=== PATIENT | female | born 2000 | race Caucasian/White ===

== ENCOUNTER 2019-04-10 14:28 | Emergency (ER) | payer OTHER ==
[~2019-04-10] VITALS: Ht 154.9 cm; Wt 50.8 kg
[2019-04-10 14:34] VITALS: BP 103/57
--- NOTE | 2019-04-10 14:43 | NUR ---
18/F BIB SELF C/O GENERALIZED ABD PAIN & LOW BACK PAIN X LAST NIGHT. PT DENIES URINARY COMPLAINTS. DIARRHEA X 5 TODAY. DENIES BLOOD IN STOOL. +NAUSEA, NO VOMITING. PT "FEELING WEAK," "AND DIZZY." DIZZINESS EXACERBATED BY STANDING. TOOK ADVIL AT 11AM WITH SOME RELIEF. PATIENT STATES PAIN OF 5/10 AT THIS TIME; PATIENT POSITIONED FOR COMFORT; HOB ELEVATED; BEDRAILS UP X1; BED DOWN. ER MD MADE AWARE OF PT STATUS.
[2019-04-10] MEDS ORDERED: ONDANSETRON 4 MG/2 ML VIAL IVP ONE (14:55)
[2019-04-10] MEDS ORDERED: KETOROLAC 30 MG/ML VIAL IVP ONE (14:55)
[2019-04-10] MEDS ORDERED: NACL 0.9% 1,000 ML IV ONE (14:55)
--- NOTE | 2019-04-10 15:05 | NUR ---
IV START: L AC 20G, FLUSHED WELL W/O RESISTANCE; NO REDNESS OR SWELLING NOTED; CLEAR TRANSPARENT DRESSING APPLIED. PT TOLERATED WELL. -LABS DRAWN BY [place] AND SENT TO LAB W/ TECH.
[2019-04-10 15:17] LABS: BASOPHILS % (AUTO) 0.2 % (0.0-2.0); HEMOGLOBIN 13.8 g/dL (12.0-16.0); LYMPHOCYTES # (AUTO) 1.3 K/uL (2.5-16.5); LYMPHOCYTES % (AUTO) 16.8 % (20.5-51.1); MEAN CORPUSCULAR HEMOGLOBIN 29 pg (27-31); MEAN CORPUSCULAR HGB CONC 34 g/dL (33-37); MEAN CORPUSCULAR VOLUME 86.2 fL (80-94); MONOCYTES # (AUTO) 0.5 K/uL (0.8-1.0); MONOCYTES % (AUTO) 6.5 % (1.7-9.3); NEUTROPHILS # (AUTO) 5.9 K/uL (1.8-7.7); NEUTROPHILS % (AUTO) 76.5 % (42.2-75.2); PLATELET COUNT (AUTO) 227 K/uL (140-450); RED BLOOD CELL COUNT(AUTO) 4.76 MIL/uL (4.20-5.40); RED CELL DISTRIBUTION WIDTH 13.8 % (11.6-13.7); WHITE BLOOD COUNT (AUTO) 7.7 K/uL (4.5-11.0)
[2019-04-10 15:18] LABS: APPEARANCE,URINE CLEAR (CLEAR); BILIRUBIN,URINE NEGATIVE (NEGATIVE); BLOOD, URINE NEGATIVE (NEGATIVE); COLOR,URINE YELLOW (YELLOW); LEUKOCYTE ESTERASE ,URINE NEGATIVE (NEGATIVE); NITRITE, URINE NEGATIVE (NEGATIVE); UGLUCOSE NEGATIVE (NEGATIVE)
[2019-04-10 15:26] LABS: ANION GAP 10.5 (8-16); CARBON DIOXIDE 26.8 mmol/L (21-32); CREATININE 0.9 mg/dL (0.6-1.3); POTASSIUM 3.3 mmol/L (3.5-5.1)
[2019-04-10 15:31] LABS: PROTHROMBIN TIME 10.4 secs (10.8-13.4)
[2019-04-10 15:32] LABS: ALBUMIN 3.9 g/dL (3.4-5.0); TOTAL BILIRUBIN 0.7 mg/dL (0.0-1.0)
[2019-04-10 17:06] VITALS: BP 98/47
--- NOTE | 2019-04-10 17:06 | NUR ---
Patient discharged with v/s stable. Written and verbal after care instructions given and explained. Patient alert, oriented and verbalized understanding of instructions. Ambulatory with steady gait. All questions addressed prior to discharge. ID band removed. Patient advised to follow up with PMD. Rx of LOMOTIL given. Patient educated on indication of medication including possible reaction and side effects. Opportunity to ask questions provided and answered.
== END 2019-04-10 17:06 | disposition home or self-care (01) ==
LOC: MED 14:28
DX: R19.7 Diarrhea, unspecified (principal); R11.0 Nausea; R10.84 Generalized abdominal pain
CPT/HCPCS: 36415; 80053; 81003; 81025; 82150; 83690; 85025; 85610; 85730; 96361; 96374; 96375; 99283; J1885; J2405; J7030

== ENCOUNTER 2019-05-28 12:25 | Emergency (ER) | payer OTHER ==
[~2019-05-28] VITALS: Ht 157.5 cm; Wt 53.1 kg
[2019-05-28 12:49] VITALS: BP 108/62
--- NOTE | 2019-05-28 12:56 | NUR ---
PT AMBULATED TO LOBBY AT THIS TIME W/ VSS.
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
--- NOTE | 2019-05-28 13:08 | NUR ---
PT AMBULATED TO BED 10 AT THIS TIME.
--- NOTE | 2019-05-28 14:16 | NUR ---
PA Gonzalez evaluating patient at bedside.
[2019-05-28] MEDS ORDERED: BACITRACIN OINT 500 UNITS/GM PKT TP ONE (14:20)
[2019-05-28 14:53] VITALS: BP 108/62
== END 2019-05-28 14:52 | disposition home or self-care (01) ==
LOC: MED 12:25
DX: T23.072A Burn of unspecified degree of left wrist, initial encounter (principal); T31.0 Burns involving less than 10% of body surface; X10.0XXA Contact with hot drinks, initial encounter; Y93.89 Activity, other specified; Y92.89 Other specified places as the place of occurrence of the external cause; Y99.8 Other external cause status
CPT/HCPCS: 90471; 90715; 99283

== ENCOUNTER 2020-04-17 10:45 | Emergency (ER) | payer OTHER ==
[~2020-04-17] VITALS: Ht 157.5 cm; Wt 53.5 kg
[2020-04-17 10:48] VITALS: BP 109/71
--- NOTE | 2020-04-17 10:51 | NUR ---
Ce gilliam in [facility] - 04/17/20 at 1056 by MED Patient ambulated to bed 11.
--- NOTE | 2020-04-17 10:53 | NUR ---
VISUAL ACUITY: BOTH 20/10 L EYE 20/20 R EYE 20/15
--- NOTE | 2020-04-17 10:54 | NUR ---
Patient ambulated to bed 6. RN evaluating patient at bedside.
--- NOTE | 2020-04-17 10:54 | NUR ---
BED 6
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
[2020-04-17] MEDS ORDERED: TETRACAINE HCL/PF 0.5% OPTH 4 ML BTL OP ONE (11:00)
[2020-04-17] MEDS ORDERED: FLUORESCEIN OPTH STRIP 1 MG OP ONE (11:00)
--- NOTE | 2020-04-17 11:21 | NUR ---
Dr. Sy is evaluating the patient at bedside.
[2020-04-17] MEDS ORDERED: ERYTHROMYCIN 0.5% OPTH OINT 1 GM TUBE OP ONE (11:25)
--- NOTE | 2020-04-17 11:38 | NUR ---
PHARMACY CALLED FOR PENDING RX ORDER ERYTHROMYCIN OINT
[2020-04-17 11:54] VITALS: BP 109/71
--- NOTE | 2020-04-17 11:54 | NUR ---
Patient discharged with v/s stable. Written and verbal after care instructions given and explained. Patient alert, oriented and verbalized understanding of instructions. Ambulatory with steady gait. All questions addressed prior to discharge. ID band removed. Patient advised to follow up with PMD. Rx of ERYTHROMYCIN given. Patient educated on indication of medication including possible reaction and side effects. Opportunity to ask questions provided and answered.
== END 2020-04-17 11:54 | disposition home or self-care (01) ==
LOC: MED 10:45
DX: H16.001 Unspecified corneal ulcer, right eye (principal)
CPT/HCPCS: 99283; 99284

== ENCOUNTER 2020-05-12 16:06 | Emergency (ER) | payer OTHER, SELFPAY ==
[~2020-05-12] VITALS: Ht 157.5 cm; Wt 54.9 kg
[2020-05-12 16:49] VITALS: BP 117/75
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
--- NOTE | 2020-05-12 17:25 | NUR ---
COVID-19 SWAB COLLECTED
[2020-05-12 17:36] VITALS: BP 117/75
--- NOTE | 2020-05-12 17:37 | NUR ---
Patient discharged with v/s stable. Written and verbal after care instructions given and explained. Patient verbalized understanding. Ambulatory with steady gait. All questions addressed prior to discharge. Advised to follow up with PMD.
== END 2020-05-12 17:37 | disposition home or self-care (01) ==
LOC: MED 16:06 → EEVIPCON 16:06 → MED 17:37
DX: J06.9 Acute upper respiratory infection, unspecified (principal); F41.9 Anxiety disorder, unspecified; Z20.828 Contact with and (suspected) exposure to other viral communicable diseases
CPT/HCPCS: 99283; U0003

== ENCOUNTER 2020-10-25 10:58 | Emergency (ER) | payer OTHER, SELFPAY ==
[~2020-10-25] VITALS: Ht 157.5 cm; Wt 61.2 kg
[2020-10-25 11:04] VITALS: BP 125/50
--- NOTE | 2020-10-25 11:09 | NUR ---
PATIENT AMBULATED TO ER BED 1
[2020-10-25] MEDS ORDERED: DOPPLER MC ONE (11:12)
--- NOTE | 2020-10-25 11:15 | NUR ---
152 HEART TONES ASSESSED VIA DOPPLER
--- NOTE | 2020-10-25 11:15 | NUR ---
19 YO F BIB SELF FOR C/C OF INTERMITTENT 5/10 LOWER ABDOMINAL CRAMPING X5 HOURS DURING PREGANCY, PT IS 22 WEEKS PREGANT. P0, G1, A0. PT DENIES OTC MEDS, DENIES N/V, DENIES VAGINAL BLEEDING. PT STATES SHE HAS A DX OF PLACENTA PREVIA AND WAS TOLD TO REPORT TO ER FOR ABDOMINAL PAIN. BED LOCKED AND IN LOWEST POSITION. SIDE RAILS X1. MED HX: DENIES NO RX
[2020-10-25 11:57] VITALS: BP 125/50
== END 2020-10-25 11:09 | disposition home or self-care (01) ==
LOC: MED 10:58
DX: O26.891 Other specified pregnancy related conditions, first trimester (principal); Z3A.22 22 weeks gestation of pregnancy
CPT/HCPCS: 81002; 81025; 99282

== ENCOUNTER 2021-05-03 00:05 | Emergency (ER) | payer OTHER ==
[~2021-05-03] VITALS: Ht 157.5 cm; Wt 63.0 kg
[2021-05-03 00:23] VITALS: BP 126/77
--- NOTE | 2021-05-03 00:28 | NUR ---
Pt ambulated to lobby w/ steady gait. VSS. No acute distress. Pt provided w/ urine speciment cup for encouagement of urine sample.
--- NOTE | 2021-05-03 02:27 | NUR ---
Pt ambulated to chair C w/ steady gait.
--- NOTE | 2021-05-03 02:30 | NUR ---
HUNTER SWABS COLLECTED AND HANDED TO IRVIN FROM LAB.
[2021-05-03] MEDS ORDERED: PHEN177S23 PO (03:06)
[2021-05-03 03:11] VITALS: BP 123/75
--- NOTE | 2021-05-03 03:11 | NUR ---
Patient discharged with v/s stable. Written and verbal after care instructions given and explained. Patient alert, oriented and verbalized understanding of instructions. Ambulatory with steady gait. All questions addressed prior to discharge. ID band removed. Patient advised to follow up with PMD. Rx of CHLORASEPTIC given. Patient educated on indication of medication including possible reaction and side effects. Opportunity to ask questions provided and answered.
== END 2021-05-03 03:11 | disposition home or self-care (01) ==
LOC: MED 00:05
DX: J04.0 Acute laryngitis (principal); J02.9 Acute pharyngitis, unspecified
CPT/HCPCS: 87081; 99283

== ENCOUNTER 2023-01-12 11:15 | Emergency (ER) | payer OTHER ==
[~2023-01-12] VITALS: Ht 157.5 cm; Wt 58.5 kg
[~2023-01-12 11:15] MED LIST: PHEN177S23 PO
[2023-01-12 11:28] VITALS: BP 110/69
[2023-01-12 12:39] LABS: APPEARANCE,URINE CLEAR (CLEAR); BILIRUBIN,URINE NEGATIVE (NEGATIVE); BLOOD, URINE NEGATIVE (NEGATIVE); COLOR,URINE YELLOW (YELLOW); LEUKOCYTE ESTERASE ,URINE NEGATIVE (NEGATIVE); NITRITE, URINE NEGATIVE (NEGATIVE); UGLUCOSE NEGATIVE (NEGATIVE)
[2023-01-12 12:39] LABS: ANION GAP 15.7 (8-16); CARBON DIOXIDE 24.3 mmol/L (21-32); CREATININE 0.8 mg/dL (0.6-1.3); TOTAL BILIRUBIN 0.5 mg/dL (0.0-1.0)
[2023-01-12 12:43] LABS: BASOPHILS % (AUTO) 0.2 % (0.0-2.0); EOSINOPHILS % (AUTO) 0.1 % (0.0-4.0); HEMATOCRIT 40.9 % (36-48); HEMOGLOBIN 13.5 g/dL (12.0-16.0); LYMPHOCYTES # (AUTO) 0.9 K/uL (2.5-16.5); LYMPHOCYTES % (AUTO) 9.6 % (20.5-51.1); MEAN CORPUSCULAR HEMOGLOBIN 27 pg (27-31); MEAN CORPUSCULAR HGB CONC 33 g/dL (33-37); MEAN CORPUSCULAR VOLUME 80.8 fL (80-94); MONOCYTES # (AUTO) 0.4 K/uL (0.8-1.0); MONOCYTES % (AUTO) 3.7 % (1.7-9.3); NEUTROPHILS # (AUTO) 8.3 K/uL (1.8-7.7); NEUTROPHILS % (AUTO) 86.4 % (42.2-75.2); PLATELET COUNT (AUTO) 281 K/uL (140-450); RED BLOOD CELL COUNT(AUTO) 5.05 MIL/uL (4.20-5.40); RED CELL DISTRIBUTION WIDTH 15.4 % (11.6-13.7); WHITE BLOOD COUNT (AUTO) 9.5 K/uL (4.8-10.8)
--- NOTE | 2023-01-12 13:30 | NUR ---
PATIENT PRESENTS TO ED WITH NAUSEA SKIN IS PINK/WARM/DRY; AAOX4 WITH EVEN AND STEADY GAIT; LUNGS CLEAR BL; HR EVEN AND REGULAR; PT DENIES ANY FEVER, CP, SOB, OR COUGH AT THIS TIME; PATIENT STATES PAIN OF 0/10 AT THIS TIME; VSS;
[2023-01-12] MEDS ORDERED: ONDA-188 SL (14:48)
[2023-01-12 15:09] VITALS: BP 108/76
--- NOTE | 2023-01-12 15:10 | NUR ---
Patient discharged with v/s stable. Written and verbal after care instructions given and explained. Patient verbalized understanding. Carried with steady gait. All questions addressed prior to discharge. Advised to follow up with PMD.
== END 2023-01-12 15:10 | disposition home or self-care (01) ==
LOC: MED 11:15
DX: A05.9 Bacterial foodborne intoxication, unspecified (principal); R11.2 Nausea with vomiting, unspecified; E86.0 Dehydration; Z79.899 Other long term (current) drug therapy
CPT/HCPCS: 36415; 80053; 81003; 81025; 83690; 85025; 99283

== ENCOUNTER 2023-07-29 10:55 | Emergency (ER) | payer OTHER ==
[~2023-07-29] VITALS: Ht 167.6 cm; Wt 62.6 kg
[~2023-07-29 10:55] MED LIST changes: +ONDA-188 SL
[2023-07-29 11:09] VITALS: BP 121/70; PULSE 74; RESP 20; TEMP 97.7; O2SAT 98
[2023-07-29 12:51] VITALS: BP 121/70; PULSE 74; RESP 20; TEMP 97.7; O2SAT 98
== END 2023-07-29 12:51 | disposition home or self-care (01) ==
LOC: MED 10:55
DX: N64.4 Mastodynia (principal); Z79.899 Other long term (current) drug therapy
CPT/HCPCS: 99281

== ENCOUNTER 2023-08-15 13:14 | Emergency (ER) | payer OTHER ==
[~2023-08-15] VITALS: Ht 162.6 cm; Wt 72.6 kg
[2023-08-15 14:58] VITALS: BP 129/79; PULSE 96; RESP 18; TEMP 98; O2SAT 98
[2023-08-15 15:22] LABS: APPEARANCE,URINE CLEAR (CLEAR); BILIRUBIN,URINE NEGATIVE (NEGATIVE); BLOOD, URINE NEGATIVE (NEGATIVE); COLOR,URINE YELLOW (YELLOW); LEUKOCYTE ESTERASE ,URINE NEGATIVE (NEGATIVE); NITRITE, URINE POSITIVE (NEGATIVE); PROTEIN,URINE NEGATIVE (NEGATIVE); UGLUCOSE NEGATIVE (NEGATIVE); UROBILINOGEN,URINE 0.2 EU/dL (0.2 - 1)
[2023-08-15 15:31] LABS: BACTERIA,URINE 10-30 (MOD) /HPF (None Seen); MUCUS,URINE 1+ /LPF (None Seen); RBC,URINE 0-5 /HPF (0-5); WBC,URINE 0-5 /HPF (0-5)
[2023-08-15] MEDS ORDERED: NITR100C7 PO (16:13)
[2023-08-15] MEDS ORDERED: GUAI237L76 PO (16:14)
== END 2023-08-15 16:23 | disposition home or self-care (01) ==
LOC: MED 13:14
DX: O23.41 Unspecified infection of urinary tract in pregnancy, first trimester (principal); O26.891 Other specified pregnancy related conditions, first trimester; R05.9 Cough, unspecified; Z3A.01 Less than 8 weeks gestation of pregnancy; Z88.8 Allergy status to other drugs, medicaments and biological substances; Z79.899 Other long term (current) drug therapy
CPT/HCPCS: 71046; 81001; 81025; 87086; 99284

== ENCOUNTER 2023-08-20 10:25 | Emergency (ER) | payer OTHER ==
[~2023-08-20] VITALS: Ht 157.5 cm; Wt 64.4 kg
[~2023-08-20 10:25] MED LIST changes: +GUAI237L76 PO; +NITR100C7 PO
[2023-08-20 10:40] VITALS: BP 124/64; PULSE 91; RESP 14; TEMP 98.3; O2SAT 97
[2023-08-20 11:19] VITALS: O2SAT 97
[2023-08-20 11:30] LABS: BASOPHILS # (AUTO) 0.1 K/uL (0.00-0.22); BASOPHILS % (AUTO) 0.6 % (0.0-2.0); EOSINOPHILS # (AUTO) 0.4 K/uL (0-0.4); EOSINOPHILS % (AUTO) 4.2 % (0.0-4.0); HEMATOCRIT 40.1 % (36-48); HEMOGLOBIN 13.3 g/dL (12.0-16.0); LYMPHOCYTES # (AUTO) 3.8 K/uL (2.5-16.5); LYMPHOCYTES % (AUTO) 42.1 % (20.5-51.1); MEAN CORPUSCULAR HEMOGLOBIN 27 pg (27-31); MEAN CORPUSCULAR HGB CONC 33 g/dL (33-37); MEAN CORPUSCULAR VOLUME 82.3 fL (80-94); MONOCYTES # (AUTO) 0.8 K/uL (0.8-1.0); MONOCYTES % (AUTO) 8.4 % (1.7-9.3); NEUTROPHILS % (AUTO) 44.7 % (42.2-75.2); PLATELET COUNT (AUTO) 364 K/uL (140-450); RED BLOOD CELL COUNT(AUTO) 4.87 MIL/uL (4.20-5.40); RED CELL DISTRIBUTION WIDTH 15.4 % (11.6-13.7); WHITE BLOOD COUNT (AUTO) 8.9 K/uL (4.8-10.8)
[2023-08-20 11:31] LABS: APPEARANCE,URINE CLEAR (CLEAR); BILIRUBIN,URINE NEGATIVE (NEGATIVE); BLOOD, URINE 2+ (NEGATIVE); COLOR,URINE YELLOW (YELLOW); LEUKOCYTE ESTERASE ,URINE TRACE (NEGATIVE); NITRITE, URINE NEGATIVE (NEGATIVE); PROTEIN,URINE NEGATIVE (NEGATIVE); UGLUCOSE NEGATIVE (NEGATIVE); UROBILINOGEN,URINE 0.2 EU/dL (0.2 - 1)
[2023-08-20 11:43] LABS: ALBUMIN 3.5 g/dL (3.4-5.0); ANION GAP 11.8 (8-16); CALCIUM 9.5 mg/dL (8.5-10.1); CARBON DIOXIDE 23.8 mmol/L (21-32); CREATININE 0.9 mg/dL (0.6-1.3); POTASSIUM 3.6 mmol/L (3.5-5.1); TOTAL BILIRUBIN 0.2 mg/dL (0.0-1.0); TOTAL PROTEIN, SERUM 7.7 g/dL (6.4-8.2)
[2023-08-20 11:48] LABS: BACTERIA,URINE FEW /HPF (None Seen); MUCUS,URINE None Seen /LPF (None Seen); RBC,URINE 11-20 (MOD) /HPF (0-5); SQUAMOUS EPITHELIAL CELL,UR 4-10 (MOD) /LPF (0-3 (FEW)); TRICHOMONAS,URINE None Seen /HPF (None Seen); WBC,URINE 0-5 /HPF (0-5); WHITE BLOOD CELL CASTS,URINE None Seen /LPF (None Seen); YEAST,URINE None Seen /HPF (None Seen)
== END 2023-08-20 14:21 | disposition home or self-care (01) ==
LOC: MED 10:25
DX: O20.0 Threatened abortion (principal); Z3A.08 8 weeks gestation of pregnancy; Z79.899 Other long term (current) drug therapy; Z79.2 Long term (current) use of antibiotics
CPT/HCPCS: 36415; 76817; 80053; 81001; 81025; 84702; 85025; 99284; Q0092

== ENCOUNTER 2024-04-12 18:02 | Emergency (ER) | payer OTHER ==
[~2024-04-12] VITALS: Ht 157.5 cm; Wt 63.5 kg
[2024-04-12 18:09] VITALS: BP 114/69; PULSE 88; RESP 18; TEMP 97.7; O2SAT 99
[2024-04-12 19:41] LABS: BASOPHILS % (AUTO) 0.4 % (0.0-2.0); EOSINOPHILS # (AUTO) 0.1 K/uL (0-0.4); EOSINOPHILS % (AUTO) 0.8 % (0.0-4.0); HEMATOCRIT 38.5 % (36-48); HEMOGLOBIN 12.8 g/dL (12.0-16.0); LYMPHOCYTES # (AUTO) 3.2 K/uL (2.5-16.5); LYMPHOCYTES % (AUTO) 25.9 % (20.5-51.1); MEAN CORPUSCULAR HEMOGLOBIN 27 pg (27-31); MEAN CORPUSCULAR HGB CONC 33 g/dL (33-37); MEAN CORPUSCULAR VOLUME 80.8 fL (80-94); MONOCYTES # (AUTO) 1.1 K/uL (0.8-1.0); NEUTROPHILS # (AUTO) 7.9 K/uL (1.8-7.7); NEUTROPHILS % (AUTO) 63.9 % (42.2-75.2); PLATELET COUNT (AUTO) 276 K/uL (140-450); RED BLOOD CELL COUNT(AUTO) 4.76 MIL/uL (4.20-5.40); RED CELL DISTRIBUTION WIDTH 15.1 % (11.6-13.7); WHITE BLOOD COUNT (AUTO) 12.3 K/uL (4.8-10.8)
[2024-04-12 19:48] LABS: ANION GAP 12.7 (8-16); CALCIUM 8.6 mg/dL (8.5-10.1); CREATININE 0.7 mg/dL (0.6-1.3); POTASSIUM 3.7 mmol/L (3.5-5.1)
== END 2024-04-12 20:40 | disposition home or self-care (01) ==
LOC: MED 18:02
DX: O26.811 Pregnancy related exhaustion and fatigue, first trimester (principal); R55 Syncope and collapse; Z3A.10 10 weeks gestation of pregnancy; Z79.1 Long term (current) use of non-steroidal anti-inflammatories (NSAID); Z79.899 Other long term (current) drug therapy
CPT/HCPCS: 36415; 80048; 81025; 85025; 93005; 99284

== ENCOUNTER 2024-07-15 10:36 | Emergency (ER) | payer OTHER ==
[~2024-07-15] VITALS: Ht 157.5 cm; Wt 63.5 kg
[2024-07-15 10:49] VITALS: BP 120/85; PULSE 9; PULSE 90; RESP 20; TEMP 97; O2SAT 98
[2024-07-15 11:31] LABS: APPEARANCE,URINE CLEAR (CLEAR); BILIRUBIN,URINE NEGATIVE (NEGATIVE); BLOOD, URINE NEGATIVE (NEGATIVE); COLOR,URINE YELLOW (YELLOW); LEUKOCYTE ESTERASE ,URINE NEGATIVE (NEGATIVE); NITRITE, URINE NEGATIVE (NEGATIVE); PROTEIN,URINE TRACE (NEGATIVE); UGLUCOSE NEGATIVE (NEGATIVE); UROBILINOGEN,URINE 0.2 EU/dL (0.2 - 1)
[2024-07-15 11:50] LABS: BACTERIA,URINE 2+ /HPF (None Seen); RBC,URINE 0-5 /HPF (0-5); SQUAMOUS EPITHELIAL CELL,UR 20-50 /LPF (0-3 (FEW)); WBC,URINE 0-5 /HPF (0-5)
[2024-07-15 11:58] LABS: BASOPHILS % (AUTO) 0.3 % (0.0-2.0); EOSINOPHILS % (AUTO) 0.1 % (0.0-4.0); HEMATOCRIT 33.4 % (36-48); LYMPHOCYTES # (AUTO) 1.9 K/uL (2.5-16.5); MEAN CORPUSCULAR HEMOGLOBIN 26 pg (27-31); MEAN CORPUSCULAR HGB CONC 33 g/dL (33-37); MONOCYTES # (AUTO) 0.5 K/uL (0.8-1.0); MONOCYTES % (AUTO) 4.9 % (1.7-9.3); NEUTROPHILS # (AUTO) 8.5 K/uL (1.8-7.7); NEUTROPHILS % (AUTO) 77.7 % (42.2-75.2); PLATELET COUNT (AUTO) 298 K/uL (140-450); RED BLOOD CELL COUNT(AUTO) 4.29 MIL/uL (4.20-5.40); RED CELL DISTRIBUTION WIDTH 14.6 % (11.6-13.7); WHITE BLOOD COUNT (AUTO) 10.9 K/uL (4.8-10.8)
[2024-07-15 12:18] LABS: ANION GAP 15.4 (8-16); CALCIUM 8.5 mg/dL (8.5-10.1); CARBON DIOXIDE 20.3 mmol/L (21-32); CREATININE 0.7 mg/dL (0.6-1.3); POTASSIUM 3.7 mmol/L (3.5-5.1)
[2024-07-15 12:23] LABS: ALBUMIN 2.7 g/dL (3.4-5.0); TOTAL BILIRUBIN 0.2 mg/dL (0.0-1.0); TOTAL PROTEIN, SERUM 7.3 g/dL (6.4-8.2)
[2024-07-15 12:26] LABS: HIV RAPID SCREEN NON-REACTIVE (NON REACTIV)
[2024-07-15 13:23] VITALS: O2SAT 98
[2024-07-15] MEDS ORDERED: NITR100C7 PO (13:55)
[2024-07-15 15:20] LABS: RAPID PLASMA REAGIN NON-REACTIVE (Non Reactiv)
== END 2024-07-15 14:14 | disposition home or self-care (01) ==
LOC: MED 10:36
DX: O20.0 Threatened abortion (principal); O23.42 Unspecified infection of urinary tract in pregnancy, second trimester; N39.0 Urinary tract infection, site not specified; O44.22 Partial placenta previa NOS or without hemorrhage, second trimester; O99.342 Other mental disorders complicating pregnancy, second trimester; F41.9 Anxiety disorder, unspecified; Z3A.24 24 weeks gestation of pregnancy; Z98.890 Other specified postprocedural states; Z79.899 Other long term (current) drug therapy
CPT/HCPCS: 36415; 76805; 80048; 80076; 81001; 81025; 84702; 85025; 86592; 86703; 86886; 86900; 86901; 87086; 87491; 99284; Q0092

== ENCOUNTER 2024-07-15 15:26 | Observation (INO) | payer OTHER ==
[~2024-07-15] VITALS: Ht 157.5 cm; Wt 63.5 kg
[2024-07-15 15:33] VITALS: BP 109/69; PULSE 110; RESP 24; TEMP 98.9; O2SAT 98
[2024-07-15 15:49] VITALS: O2SAT 98
[2024-07-15 18:22] VITALS: BP 106/72; PULSE 90; RESP 18; TEMP 98.1
[2024-07-15 19:05] LABS: INR 0.95 (0.8-1.2); PARTIAL THROMBOPLASTIN TIME 25.9 secs (22-35.6)
== END 2024-07-15 21:40 | disposition home or self-care (01) ==
LOC: MED 15:26 → EEVIPCON 17:25 → MLD 17:25 → EDSTATUS 17:42
PROVIDERS: ADMIT Obstetrics & Gynecology; ATTEND Obstetrics & Gynecology
DX: O26.892 Other specified pregnancy related conditions, second trimester (principal); R10.30 Lower abdominal pain, unspecified; Z3A.24 24 weeks gestation of pregnancy
CPT/HCPCS: 36415; 85384; 85610; 85730; 99284; G0378